=== PATIENT | female | born 1975 | race American Indian/Alaskan Native ===

== ENCOUNTER 2019-01-26 14:42 | Inpatient (IN) | payer SELFPAY ==
--- NOTE | 2019-01-26 14:53 | Event Note ---
ED Screening Note Date of service: 01/26/19 Time: 14:48 ED Screening Note: 43 y o f presents with low pelvic, abdominal and bilateral back pain x 3 days positive vomitting denies vag d/c/ bleed lmp:past hysterectomy hightly uncomfortable tender This initial assessment/diagnostic orders/clinical plan/treatment(s) is/are subject to change based on patients health status, clinical progression and re- assessment by fellow clinical providers in the ED. Further treatment and workup at subsequent clinical providers discretion. Patient/guardian urged not to elope from the ED as their condition may be serious if not clinically assessed and managed. Initial orders include: labs acc eval
[2019-01-26 15:29] LABS: Basophils % (Auto) 0.2 % (0.0-1.8); Eosinophils % (Auto) 0.2 % (0.0-4.3); Hemoglobin 14.7 gm/dl (10.1-14.3); Lymphocytes # (Auto) 0.8 K/mm3 (1.2-5.4); Lymphocytes % (Auto) 4.3 % (13.4-35.0); Mean Corpuscular HGB Conc 34 % (30-34); Mean Corpuscular Volume 88 fl (79-97); Monocytes # (Auto) 1.4 K/mm3 (0.0-0.8); Monocytes % (Auto) 7.7 % (0.0-7.3); Platelet Count 174 K/mm3 (140-440); Red Cell Distribution Width 14.3 % (13.2-15.2)
[2019-01-26] MEDS ORDERED: MORPHINE 4 MG/1 ML INJ IV ONE (15:34)
[2019-01-26] MEDS ORDERED: ONDANSETRON 4 MG/2 ML INJ IV ONE (15:34)
[2019-01-26] MEDS ORDERED: KETOROLAC 30 MG/1 ML INJ IV ONE (15:34)
[2019-01-26] MEDS ORDERED: SODIUM CHLORIDE 0.9% 1000 ML 1,000 ML IV ONE ×3 (15:34→17:17)
[2019-01-26] MEDS ORDERED: cefTRIAXone/NS 2 GM/100 ML 2 GM/100 ML BAG IV ONE (15:35)
--- NOTE | 2019-01-26 15:40 | Emergency Department Report ---
ED Abdominal Pain HPI - General Chief Complaint: Abdominal Pain Stated Complaint: LOWER BACK/ABD PAIN Time Seen by Provider: 01/26/19 14:47 Source: patient Mode of arrival: Ambulatory Limitations: No Limitations - History of Present Illness Initial Comments: Mrs. Wyman is a very pleasant 43-year-old female with history of uterine fibroids status post hysterectomy who presents with lower abdominal pain and bilateral back pain for last 3 days. She has nausea vomiting urinary frequency and urgency. Moderately severe aching back pain. Gradual onset. Positive generalized malaise. Majority of the pain localizes to the flank region bilaterally Past surgical history includes hysterectomy, MD Complaint: abdominal pain, flank pain -: Gradual, days(s) (3) Location: suprapubic, L flank, R flank, bilateral flank Radiation: suprapubic, L flank, R flank, bilateral flank Severity: severe Severity scale (0 -10): 8 Quality: aching Consistency: constant Improves With: nothing Worsens With: nothing Associated Symptoms: nausea, diarrhea - Related Data Allergies Allergy/AdvReac Type Severity Reaction Status Date / Time meperidine [From Demerol] Allergy Unknown Verified 01/26/19 14:45 ED Review of Systems ROS: Stated complaint: LOWER BACK/ABD PAIN Other details as noted in HPI Comment: All other systems reviewed and negative Constitutional: fever, malaise Gastrointestinal: abdominal pain, nausea, vomiting Genitourinary: urgency, frequency Musculoskeletal: back pain ED Past Medical Hx - Past Medical History Previous Medical History?: No - Surgical History Past Surgical History?: Yes Additional Surgical History: hysterectomy - Social History Smoking Status: Current Every Day Smoker Substance Use Type: Alcohol ED Physical Exam - General Limitations: No Limitations General appearance: alert, in no apparent distress, other (pleasant, nontoxic-appearing appears uncomfortable) - Head Head exam: Present: atraumatic, normocephalic - Eye Eye exam: Present: normal appearance - ENT ENT exam: Present: mucous membranes moist - Neck Neck exam: Present: normal inspection - Respiratory Respiratory exam: Present: normal lung sounds bilaterally, wheezes, rales, r honchi. Absent: respiratory distress - Cardiovascular Cardiovascular Exam: Present: normal rhythm, tachycardia, normal heart sounds. Absent: systolic murmur, diastolic murmur, rubs, gallop - GI/Abdominal GI/Abdominal exam: Present: soft, normal bowel sounds. Absent: distended, tenderness, guarding, rebound - Extremities Exam Extremities exam: Present: normal inspection - Back Exam Back exam: Present: CVA tenderness (R), CVA tenderness (L) - Neurological Exam Neurological exam: Present: alert, oriented X3 - Psychiatric Psychiatric exam: Present: normal affect, normal mood - Skin Skin exam: Present: warm, dry, intact, normal color. Absent: rash ED Course Vital Signs 01/26/19 01/26/19 01/26/19 14:58 16:09 16:10 Temperature 100.2 F H Pulse Rate 127 H Respiratory 20 20 20 Rate Blood Pressure 100/64 Blood Pressure [Left] O2 Sat by Pulse 98 Oximetry 01/26/19 01/26/19 17:18 17:19 Temperature Pulse Rate 91 H Respiratory 17 17 Rate Blood Pressure Blood Pressure 87/55 [Left] O2 Sat by Pulse 98 Oximetry ED Medical Decision Making - Lab Data Result diagrams: 01/26/19 14:56 01/26/19 14:56 - Radiology Data Radiology results: report reviewed - Medical Decision Making dx: acute pyelonephritis, IV ceftriaxone provided in ED, IVF provided in ED, lactic acid normal, admitted to hospitalist service for severe malaise CT a/p revealed 4 mm right distal ureteral stone without obstruction, No indication of pyonephrosis without hydronephrosis, hydroureter, or perinephric stranding I highly appreciate the assistance of my hospitalist colleague Dr. Diaz who evaluated patient in ED and accept Mrs. Wyman to the hospitalist service - Differential Diagnosis pyelonephritis, renal colic due to kidney stone appendicitis, cholecystitis Critical care attestation.: If time is entered above; I have spent that time in minutes in the direct care of this critically ill patient, excluding procedure time. ED Disposition Clinical Impression: Acute pyelonephritis, Kidney stone on right side Disposition: OP ADMIT IP TO THIS HOSP Is pt being admited?: Yes Does the pt Need Aspirin: No Condition: Stable
[2019-01-26 15:46] LABS: HCG Qualitative,Urine Negative (Negative)
[2019-01-26 15:50] LABS: Bacteria,Urine 4+ /HPF (Negative); Bilirubin,Urine NEG (Negative); Blood,Urine LG (Negative); Color,Urine Amber (Yellow); Mucus,Urine FEW /HPF; RBC,Urine > 182.0 /HPF (0.0-6.0); WBC,Urine > 182.0 /HPF (0.0-6.0)
[2019-01-26 16:01] LABS: Alanine Aminotransferase 14 units/L (7-56); Albumin 3.7 g/dL (3.9-5); BUN/Creatinine Ratio 13; Blood Urea Nitrogen 10 mg/dL (7-17); Hemolysis Index 2
[2019-01-26] MEDS ORDERED: oxyCODONE /ACETAMINOPHEN 5-325MG TAB PO ONE (16:30)
--- NOTE | 2019-01-26 17:01 | Cat Scan Report ---
CT ABDOMEN AND PELVIS WITHOUT CONTRAST INDICATION / CLINICAL INFORMATION: fever bilateral flank pain. TECHNIQUE: Axial CT images were obtained through the abdomen and pelvis without IV contrast. All CT scans at [facility] location are performed using CT dose reduction for ALARA by means of automated exposure control. COMPARISON: None available. FINDINGS: LOWER CHEST: Symmetric bibasilar platelike atelectatic changes. LIVER: No significant abnormality. GALLBLADDER: Hyperattenuating material layering dependently in the gallbladder likely represents bili curt sludge. BILE DUCTS: No significant abnormality. PANCREAS: No significant abnormality. SPLEEN: No significant abnormality. ADRENALS: No significant abnormality. RIGHT KIDNEY and URETER: Punctate calcifications are noted which may represent tiny calculi in the co llecting system of the kidney, not causing obstructive physiology (series 2 images 67 and 69). No abn ormal perinephric stranding. There is a subtle hypoattenuating lesion centrally in the kidney that me asures 1.2 cm and likely represents a cyst or possibly a calyceal diverticulum but is incompletely ch aracterized on this exam. (Series 2 image 61). A 4 mm calcified body on series 2 image 121 appears to be within the ureter, which is minimally dilated above the calculus and collapsed below it. No signi ficant periureteral stranding. LEFT KIDNEY and URETER: No definite renal or ureteral calculus. No hydronephrosis or perinephric stra nding. Simple cyst or calyceal diverticulum with diameter 2 cm is noted in the interpolar region. STOMACH and SMALL BOWEL: No significant abnormality. COLON: No significant abnormality. PERITONEUM: No free fluid. No free air. No fluid collection. LYMPH NODES: No adenopathy. AORTA and ARTERIES: Unremarkable by noncontrast technique. IVC and VEINS: Unremarkable by noncontrast technique. URINARY BLADDER: Underdistended, limiting evaluation. No abnormal thickening of the wall. No bladder calculus is identified. REPRODUCTIVE ORGANS: No significant abnormality. ADDITIONAL FINDINGS: None. SKELETAL SYSTEM: No acute abnormality. A transitional lumbosacral vertebra is noted. IMPRESSION: 4 mm distal right ureteral calculus with minimal proximal ureterectasis. There are additional punctate nonobstructing calculi in the collecting system of the right kidney. Biliary sludge. No evidence of acute cholecystitis by noncontrast CT. Signer Name: Manolo Phelan MD Signed: 01/26/2019 4:56 PM Workstation Name: [id number]
[2019-01-26] MEDS ORDERED: TAMSULOSIN 0.4 MG CAP PO ONE (18:01)
[2019-01-26] MEDS ORDERED: ONDANSETRON 4 MG/2 ML INJ IV PRN (18:11)
--- NOTE | 2019-01-26 18:28 | History and Physical Report ---
History of Present Illness Date of examination: 01/26/19 Date of admission: 01/26/2019 Chief complaint: Bilateral flank pain since yesterday Nausea vomiting since yesterday History of present illness: 43-y/o female with history of uterine fibroids status post hysterectomy presents with lower abdominal pain and bilateral back pain for last 3 days. Also fever and chills present. Patient has nausea vomiting urinary frequency and urgency. Patient vomited about 3-4 times over the last 12 hours. Moderately severe aching back pain. Gradual onset. Pain is about 6 on a scale of 1-10 . No exacerbating or relieving factors. Past Medical History None Surgical History Past Surgical History?: Yes C-sections x2 Hysterectomy , Social History Smoking Status: Current Every Day Smoker Substance Use Type: Alcohol occasionally Family History Htn Review of Systems ROS: Stated complaint: LOWER BACK/ABD PAIN Other details as noted in HPI Comment: All other systems reviewed and negative Constitutional: fever, malaise Gastrointestinal: abdominal pain, nausea, vomiting Genitourinary: urgency, frequency Musculoskeletal: back pain 14 point review of systems otherwise negative Medications and Allergies Allergies Allergy/AdvReac Type Severity Reaction Status Date / Time meperidine [From Demerol] Allergy Unknown Verified 01/26/19 14:45 Active Meds: Active Medications Acetaminophen (Tylenol) 650 mg PO Q4H PRN PRN Reason: Pain MILD(1-3)/Fever >100.5/LIZARRAGA Famotidine (Pepcid) 20 mg PO BID JAIRO Hydromorphone HCl (Dilaudid) 0.5 mg IV Q3H PRN PRN Reason: Pain , Severe (7-10) Sodium Chloride (Nacl 0.9% 1000 Ml) 1,000 mls @ 100 mls/hr IV DIRECT JAIRO Ceftriaxone Sodium (Rocephin/Ns 2 Gm/100 Ml) 2 gm in 100 mls @ 200 mls/hr IV Q24HR JAIRO; Protocol Ibuprofen (Ibuprofen) 600 mg PO Q6H PRN PRN Reason: Pain, Mild (1-3) Ondansetron HCl (Zofran) 4 mg IV Q8H PRN PRN Reason: Nausea And Vomiting Sodium Chloride (Sodium Chloride Flush Syringe 10 Ml) 10 ml IV BID [facility] Sodium Chloride (Sodium Chloride Flush Syringe 10 Ml) 10 ml IV PRN PRN PRN Reason: LINE FLUSH Exam - Constitutional Vitals: Temp Pulse Resp BP Pulse Ox 100.2 F H 91 H 17 87/55 98 01/26/19 14:58 01/26/19 17:18 01/26/19 17:19 01/26/19 17:18 01/26/19 17:18 General appearance: Present: no acute distress, well-nourished - EENT Eyes: Present: PERRL ENT: hearing intact, clear oral mucosa - Neck Neck: Present: supple, normal ROM - Respiratory Respiratory effort: normal Respiratory: bilateral: CTA - Cardiovascular Heart rate: 88 Rhythm: regular Heart Sounds: Present: S1 & S2. Absent: rub, click - Extremities Extremities: no ischemia, pulses intact, pulses symmetrical, No edema Peripheral Pulses: within normal limits - Abdominal General gastrointestinal: Present: soft, tender, non-distended, normal bowel sounds Localized gastrointestinal: tender: diffuse Female genitourinary: Present: normal - Rectal Rectal Exam: deferred - Integumentary Integumentary: Present: clear, warm, dry - Musculoskeletal Musculoskeletal: gait normal, strength equal bilaterally - Psychiatric Psychiatric: appropriate mood/affect, intact judgment & insight - Neurologic Neurologic: CNII-XII intact, moves all extremities - Allied Health Allied health notes reviewed: nursing, case management Results - Labs CBC & Chem 7: 01/26/19 14:56 01/26/19 14:56 Labs: Laboratory Last Values WBC 18.5 K/mm3 (4.5-11.0) H 01/26/19 14:56 RBC 4.90 M/mm3 (3.65-5.03) 01/26/19 14:56 Hgb 14.7 gm/dl (10.1-14.3) H 01/26/19 14:56 Hct 43.0 % (30.3-42.9) H 01/26/19 14:56 MCV 88 fl (79-97) 01/26/19 14:56 MCH 30 pg (28-32) 01/26/19 14:56 MCHC 34 % (30-34) 01/26/19 14:56 RDW 14.3 % (13.2-15.2) 01/26/19 14:56 Plt Count 174 K/mm3 (140-440) 01/26/19 14:56 Lymph % (Auto) 4.3 % (13.4-35.0) L 01/26/19 14:56 [place] % (Auto) 7.7 % (0.0-7.3) H 01/26/19 14:56 Eos % (Auto) 0.2 % (0.0-4.3) 01/26/19 14:56 Baso % (Auto) 0.2 % (0.0-1.8) 01/26/19 14:56 Lymph # 0.8 K/mm3 (1.2-5.4) L 01/26/19 14:56 [place] # 1.4 K/mm3 (0.0-0.8) H 01/26/19 14:56 Eos # 0.0 K/mm3 (0.0-0.4) 01/26/19 14:56 Baso # 0.0 K/mm3 (0.0-0.1) 01/26/19 14:56 Seg Neutrophils % 87.6 % (40.0-70.0) H 01/26/19 14:56 Seg Neutrophils # 16.2 K/mm3 (1.8-7.7) H 01/26/19 14:56 Sodium 132 mmol/L (137-145) L 01/26/19 14:56 Potassium 3.2 mmol/L (3.6-5.0) L 01/26/19 14:56 Chloride 97.6 mmol/L (98-107) L 01/26/19 14:56 Carbon Dioxide 22 mmol/L (22-30) 01/26/19 14:56 Anion Gap 16 mmol/L 01/26/19 14:56 BUN 10 mg/dL (7-17) 01/26/19 14:56 Creatinine 0.8 mg/dL (0.7-1.2) 01/26/19 14:56 Estimated GFR > 60 ml/min 01/26/19 14:56 BUN/Creatinine Ratio 13 % 01/26/19 14:56 Glucose 111 mg/dL (65-100) H 01/26/19 14:56 Lactic Acid 0.90 mmol/L (0.7-2.0) 01/26/19 16:45 Calcium 9.0 mg/dL (8.4-10.2) 01/26/19 14:56 Total Bilirubin 0.40 mg/dL (0.1-1.2) 01/26/19 14:56 AST 14 units/L (5-40) 01/26/19 14:56 ALT 14 units/L (7-56) 01/26/19 14:56 Alkaline Phosphatase 102 units/L (35-129) 01/26/19 14:56 Total Protein 7.7 g/dL (6.3-8.2) 01/26/19 14:56 Albumin 3.7 g/dL (3.9-5) L 01/26/19 14:56 Albumin/Globulin Ratio 0.9 % 01/26/19 14:56 Lipase 12 units/L (13-60) L 01/26/19 14:56 Urine Color Gunjan (Yellow) 01/26/19 15:30 Urine Turbidity Cloudy (Clear) 01/26/19 15:30 Urine pH 6.0 (5.0-7.0) 01/26/19 15:30 Ur Specific [place] 1.013 (1.003-1.030) 01/26/19 15:30 Urine Protein 100 mg/dl mg/dL (Negative) 01/26/19 15:30 Urine Glucose (UA) Neg mg/dL (Negative) 01/26/19 15:30 Urine Ketones Tr mg/dL (Negative) 01/26/19 15:30 Urine Blood Lg (Negative) 01/26/19 15:30 Urine Nitrite Neg (Negative) 01/26/19 15:30 Ur Reducing Substances Not Reportable 01/26/19 15:30 Urine Bilirubin Neg (Negative) 01/26/19 15:30 Urine Ictotest Not Reportable 01/26/19 15:30 Urine Urobilinogen 4.0 mg/dL (<2.0) 01/26/19 15:30 Ur Leukocyte Esterase Lg (Negative) 01/26/19 15:30 Urine WBC (Auto) > 182.0 /HPF (0.0-6.0) H 01/26/19 15:30 Urine RBC (Auto) > 182.0 /HPF (0.0-6.0) 01/26/19 15:30 U Epithel Cells (Auto) 2.0 /HPF (0-13.0) 01/26/19 15:30 Urine Bacteria (Auto) 4+ /HPF (Negative) 01/26/19 15:30 Urine WBC Clumps 2+ /HPF 01/26/19 15:30 Urine Mucus Few /HPF 01/26/19 15:30 Urine HCG, Qual Negative (Negative) 01/26/19 15:30 Short CBC 01/26/19 Range/Units 14:56 WBC 18.5 H (4.5-11.0) K/mm3 Hgb 14.7 H (10.1-14.3) gm/dl Hct 43.0 H (30.3-42.9) % Plt Count 174 (140-440) K/mm3 BMP 01/26/19 14:56 Sodium 132 L Potassium 3.2 L Chloride 97.6 L Carbon Dioxide 22 BUN 10 Creatinine 0.8 Glucose 111 H Calcium 9.0 Liver Function 01/26/19 Range/Units 14:56 Total Bilirubin 0.40 (0.1-1.2) mg/dL AST 14 (5-40) units/L ALT 14 (7-56) units/L Alkaline Phosphatase 102 (35-129) units/L Albumin 3.7 L (3.9-5) g/dL Urine 01/26/19 Range/Units 15:30 Urine Color Gunjan (Yellow) Urine pH 6.0 (5.0-7.0) Ur Specific [place] 1.013 (1.003-1.030) Urine Protein 100 mg/dl (Negative) mg/dL Urine Glucose (UA) Neg (Negative) mg/dL - Imaging and Cardiology CT scan - abdomen: report reviewed Imaging and Cardiology: CT abdomen and pelvis RIGHT KIDNEY and URETER: Punctate calcifications are noted which may represent tiny calculi in the collecting system of the kidney, not causing obstructive physiology (series 2 images 67 and 69). No abnormal perinephric stranding. There is a subtle hypoattenuating lesion centrally in the kidney that measures 1.2 cm and likely represents a cyst or possibly a calyceal diverticulum but is incompletely characterized on this exam. (Series 2 image 61). A 4 mm calcified body on series 2 image 121 appears to be within the ureter, which is minimally dilated above the calculus and collapsed below it. No significant periureteral stranding. LEFT KIDNEY and URETER: No definite renal or ureteral calculus. No hydronephr osis or perinephric stranding. Simple cyst or calyceal diverticulum with diameter 2 cm is noted in t he interpolar region. STOMACH and SMALL BOWEL: No significant abnormality. COLON: No significant abnormality. PERITONEUM: No free fluid. No free air. No fluid collection. LYMPH NODES: No adenopathy. AORTA and ARTERIES: Unremarkable by noncontrast technique. IVC and VEINS: Unremarkable by noncontrast technique. URINARY BLADDER: Underdistended, limiting evaluation. No abnormal thickening of the wall. No bladder calculus is identified. REPRODUCTIVE ORGANS: No significant abnormality. ADDITIONAL FINDINGS: None. SKELETAL SYSTEM: No acute abnormality. A transitional lumbosacral vertebra is noted. IMPRESSION: 4 mm distal right ureteral calculus with minimal proximal ureterectasis. There are additional punctate nonobstructing calculi in the collecting system of the right kidney. Biliary sludge. No evidence of acute cholecystitis by noncontrast CT. Assessment and Plan Advance Directives: Yes (full code) VTE prophylaxis?: Chemical Plan of care discussed with patient/family: Yes - Patient Problems (1) SIRS (systemic inflammatory response syndrome) Current Visit: Yes Status: Acute Plan to address problem: Patient is a high white count and fever and urinary tract infection Patient has bilateral flank pain secondary to acute pyelonephritis IV antibiotics in the form of ceftriaxone pending urine cultures (2) Acute pyelonephritis Current Visit: Yes Status: Acute Plan to address problem: IV Rocephin 2 g IV piggyback every 24hrs Check urine cultures (3) Hypokalemia Current Visit: Yes Status: Acute Plan to address problem: Supplemented (4) Nicotine dependence Current Visit: Yes Status: Chronic Qualifiers: Nicotine product type: cigarettes Plan to address problem: Patient counseled NicoDerm patch initiated (5) DVT prophylaxis Current Visit: Yes Status: Acute Plan to address problem: On Lovenox and GI prophylaxis
[2019-01-26] MEDS ORDERED: POTASSIUM CHLORIDE ER 20 MEQ TAB PO ONE ×2 (19:07→20:31)
[2019-01-26] MEDS ORDERED: SODIUM CHLORIDE 0.9% 1000 ML 1,000 ML ONE (19:28)
[2019-01-26] MEDS: cefTRIAXone/NS 2 GM/100 ML 2 GM/100 ML BAG IV SCH (20:26)
[2019-01-26] MEDS ORDERED: ENOXAPARIN 40 MG/0.4 ML INJ SUB-Q SCH (22:00)
[2019-01-26] MEDS: SODIUM CHLORIDE 0.9% 1000 ML 1,000 ML IV SCH (22:23)
[2019-01-26] MEDS: HYDROmorphone 1 MG/1 ML INJ IV PRN (22:24)
[2019-01-26] MEDS: FAMOTIDINE 20 MG TAB PO SCH (22:24)
[2019-01-26] MEDS: ACETAMINOPHEN 325 MG TAB PO PRN (23:16)
[2019-01-26] MEDS: guaiFENesin ER 600 MG TAB PO SCH (23:16)
[2019-01-26] MEDS: NICOTINE 7 MG/24 HR PATCH TD SCH (23:18)
[2019-01-27] MEDS: IBUPROFEN 600 MG TAB PO PRN ×4 (00:59→23:33)
[2019-01-27 05:56] LABS: Basophils % (Auto) 0.1 % (0.0-1.8); Eosinophils # (Auto) 0.1 K/mm3 (0.0-0.4); Eosinophils % (Auto) 0.6 % (0.0-4.3); Hematocrit 33.5 % (30.3-42.9); Hemoglobin 11.4 gm/dl (10.1-14.3); Lymphocytes # (Auto) 1.3 K/mm3 (1.2-5.4); Lymphocytes % (Auto) 12.4 % (13.4-35.0); Mean Corpuscular HGB Conc 34 % (30-34); Mean Corpuscular Volume 90 fl (79-97); Monocytes # (Auto) 1.2 K/mm3 (0.0-0.8); Platelet Count 116 K/mm3 (140-440); Red Blood Count 3.74 M/mm3 (3.65-5.03); Red Cell Distribution Width 14.4 % (13.2-15.2)
[2019-01-27 06:38] LABS: Alanine Aminotransferase 10 units/L (7-56); Albumin 2.7 g/dL (3.9-5); BUN/Creatinine Ratio 15; Blood Urea Nitrogen 9 mg/dL (7-17); Calcium 7.5 mg/dL (8.4-10.2); Hemolysis Index 8
[2019-01-27] MEDS: cefTRIAXone/NS 2 GM/100 ML 2 GM/100 ML BAG IV SCH (10:00)
[2019-01-27] MEDS: NICOTINE 7 MG/24 HR PATCH TD SCH (10:01)
[2019-01-27] MEDS: guaiFENesin ER 600 MG TAB PO SCH ×2 (10:01→21:26)
[2019-01-27] MEDS: FAMOTIDINE 20 MG TAB PO SCH ×2 (10:01→21:26)
[2019-01-27] MEDS: HYDROmorphone 1 MG/1 ML INJ IV PRN ×2 (13:31→18:58)
--- NOTE | 2019-01-27 16:35 | Progress Note ---
Assessment and Plan Assessment and plan: Patient is a 43-y/o female with history of uterine fibroids status post hysterectomy presents with lower abdominal pain and bilateral back pain for last 3 days. Also fever and chills present. Patient has nausea vomiting urinary frequency and urgency. Patient vomited about 3-4 times over the last 12 hours. Moderately severe aching back pain. Gradual onset. Pain is about 6 on a scale of 1-10 . No exacerbating or relieving factors. * CT abd/pelvis wo contrast IMPRESSION: 4 mm distal right ureteral calculus with minimal proximal ureterectasis. There are additional punctate nonobstructing calculi in the collecting system of the right kidney. Biliary sludge. No evidence of acute cholecystitis by noncontrast CT. Sepsis secondary to acute pyelonephritis: IV antibiotics in the form of ceftriax one pending urine cultures Acute pyelonephritis: IV Rocephin 2 g IV piggyback every 24hrs, Check urine cultures Hypokalemia Supplemented, monitor BMP closely Nicotine dependence: Patient counseled, NicoDerm patch initiated Right Ureteral stones: consulted Urology DVT prophylaxis: On Lovenox and GI prophylaxis History Interval history: Patient was seen and examined. Follow-up on current diagnosis of fevers. No overnight events reported to me. Patient denies any chest pain, shortness breath, nausea/vomiting or severe headaches. Imaging, nursing note, chart, labs and old chart reviewed. Discussed with patient. Hospitalist Physical - Physical exam Narrative exam: Gen: WDWN, ill appearing, diaphoretic, NAD, Awake, Alert, Orientated HEENT: NCAT, EOMI, PERRL, OP Clear Neck: supple, no adenopathy, no thyromegaly, no JVD CVS/Heart: RRR, normal S1S2, pulses present bilaterally Chest/Lungs: CTA B, Symmetrical chest expansion, good air entry bilaterally GI/Abdomen: soft, NTND, good bowel sounds, no guarding or rebound /Bladder: no suprapubic tenderness, +Right CVA tenderness no paraspinal tenderness Extermity/Skin: no c/c/e, no obvious rash MSK: FROM x 4 Neuro: CN 2-12 grossly intact, no new focal deficits Psych: calm - Constitutional Vitals: Temp Pulse Resp BP Pulse Ox 98.3 F 78 18 85/50 100 01/27/19 06:20 01/27/19 06:20 01/27/19 06:20 01/27/19 06:20 01/27/19 10:00 General appearance: Present: no acute distress, well-nourished Results - Labs CBC & Chem 7: 01/27/19 05:38 01/27/19 05:38 Labs: Laboratory Last Values WBC 10.8 K/mm3 (4.5-11.0) 01/27/19 05:38 RBC 3.74 M/mm3 (3.65-5.03) 01/27/19 05:38 Hgb 11.4 gm/dl (10.1-14.3) D 01/27/19 05:38 Hct 33.5 % (30.3-42.9) D 01/27/19 05:38 MCV 90 fl (79-97) 01/27/19 05:38 MCH 31 pg (28-32) 01/27/19 05:38 MCHC 34 % (30-34) 01/27/19 05:38 RDW 14.4 % (13.2-15.2) 01/27/19 05:38 Plt Count 116 K/mm3 (140-440) L 01/27/19 05:38 Lymph % (Auto) 12.4 % (13.4-35.0) L 01/27/19 05:38 [place] % (Auto) 11.0 % (0.0-7.3) H 01/27/19 05:38 Eos % (Auto) 0.6 % (0.0-4.3) 01/27/19 05:38 Baso % (Auto) 0.1 % (0.0-1.8) 01/27/19 05:38 Lymph # 1.3 K/mm3 (1.2-5.4) 01/27/19 05:38 [place] # 1.2 K/mm3 (0.0-0.8) H 01/27/19 05:38 Eos # 0.1 K/mm3 (0.0-0.4) 01/27/19 05:38 Baso # 0.0 K/mm3 (0.0-0.1) 01/27/19 05:38 Seg Neutrophils % 75.9 % (40.0-70.0) H 01/27/19 05:38 Seg Neutrophils # 8.2 K/mm3 (1.8-7.7) H 01/27/19 05:38 Sodium 137 mmol/L (137-145) 01/27/19 05:38 Potassium 3.4 mmol/L (3.6-5.0) L 01/27/19 05:38 Chloride 107.6 mmol/L (98-107) H 01/27/19 05:38 Carbon Dioxide 19 mmol/L (22-30) L 01/27/19 05:38 Anion Gap 14 mmol/L 01/27/19 05:38 BUN 9 mg/dL (7-17) 01/27/19 05:38 Creatinine 0.6 mg/dL (0.7-1.2) L 01/27/19 05:38 Estimated GFR > 60 ml/min 01/27/19 05:38 BUN/Creatinine Ratio 15 % 01/27/19 05:38 Glucose 98 mg/dL (65-100) 01/27/19 05:38 Hemoglobin A1c 5.2 % (4-6) 01/26/19 14:56 Lactic Acid 0.90 mmol/L (0.7-2.0) 01/26/19 16:45 Calcium 7.5 mg/dL (8.4-10.2) L D 01/27/19 05:38 Total Bilirubin 0.40 mg/dL (0.1-1.2) 01/27/19 05:38 AST 12 units/L (5-40) 01/27/19 05:38 ALT 10 units/L (7-56) 01/27/19 05:38 Alkaline Phosphatase 72 units/L (35-129) 01/27/19 05:38 Total Protein 5.8 g/dL (6.3-8.2) L D 01/27/19 05:38 Albumin 2.7 g/dL (3.9-5) L 01/27/19 05:38 Albumin/Globulin Ratio 0.9 % 01/27/19 05:38 Lipase 12 units/L (13-60) L 01/26/19 14:56 Urine Color [place] (Yellow) 01/26/19 15:30 Urine Turbidity Cloudy (Clear) 01/26/19 15:30 Urine pH 6.0 (5.0-7.0) 01/26/19 15:30 Ur Specific [place] 1.013 (1.003-1.030) 01/26/19 15:30 Urine Protein 100 mg/dl mg/dL (Negative) 01/26/19 15:30 Urine Glucose (UA) Neg mg/dL (Negative) 01/26/19 15:30 Urine Ketones Tr mg/dL (Negative) 01/26/19 15:30 Urine Blood Lg (Negative) 01/26/19 15:30 Urine Nitrite Neg (Negative) 01/26/19 15:30 Ur Reducing Substances Not Reportable 01/26/19 15:30 Urine Bilirubin Neg (Negative) 01/26/19 15:30 Urine Ictotest Not Reportable 01/26/19 15:30 Urine Urobilinogen 4.0 mg/dL (<2.0) 01/26/19 15:30 Ur Leukocyte Esterase Lg (Negative) 01/26/19 15:30 Urine WBC (Auto) > 182.0 /HPF (0.0-6.0) H 01/26/19 15:30 Urine RBC (Auto) > 182.0 /HPF (0.0-6.0) 01/26/19 15:30 U Epithel Cells (Auto) 2.0 /HPF (0-13.0) 01/26/19 15:30 Urine Bacteria (Auto) 4+ /HPF (Negative) 01/26/19 15:30 Urine WBC Clumps 2+ /HPF 01/26/19 15:30 Urine Mucus Few /HPF 01/26/19 15:30 Urine HCG, Qual Negative (Negative) 01/26/19 15:30 Active Medications - Current Medications Current Medications: Generic Name Dose Route Start Last Admin Trade Name Freq PRN Reason Stop Dose Admin Acetaminophen 650 mg 01/26/19 18:11 01/26/19 23:16 Tylenol PO 650 mg Q4H PRN Administration Pain MILD(1-3)/Fever >100.5/LIZARRAGA Famotidine 20 mg 01/26/19 22:00 01/27/19 10:01 Pepcid PO 20 mg BID JAIRO Administration Guaifenesin 600 mg 01/26/19 23:45 01/27/19 10:01 Mucinex Er PO 600 mg BID JAIRO Administration Hydromorphone HCl 0.5 mg 01/26/19 18:11 01/27/19 13:31 Dilaudid IV 0.5 mg Q3H PRN Administration Pain , Severe (7-10) Sodium Chloride 1,000 mls @ 100 mls/hr 01/26/19 19:00 01/26/19 22:23 Nacl 0.9% 1000 Ml IV 100 mls/hr DIRECT JAIRO Administration Ceftriaxone Sodium 2 gm in 100 mls @ 200 mls/hr 01/26/19 19:00 01/27/19 10:00 Rocephin/Ns 2 Gm/100 Ml IV 200 mls/hr Q24HR JAIRO Administration Protocol Ibuprofen 600 mg 01/26/19 18:11 01/27/19 13:31 Ibuprofen PO 600 mg Q6H PRN Administration Pain, Mild (1-3) Nicotine 7 mg 01/26/19 20:00 01/27/19 10:01 Habitrol TD 7 mg QDAY JAIRO Administration Ondansetron HCl 4 mg 01/26/19 18:11 Zofran IV Q8H PRN Nausea And Vomiting Sodium Chloride 10 ml 01/26/19 22:00 01/27/19 10:02 Sodium Chloride Flush Syringe 10 Ml IV 10 ml BID JAIRO Administration Sodium Chloride 10 ml 01/26/19 18:11 Sodium Chloride Flush Syringe 10 Ml IV PRN PRN LINE FLUSH Nutrition/Malnutrition Assess - Dietary Evaluation Nutrition/Malnutrition Findings: Nutrition Notes Start: 01/27/19 10:03 Freq: Status: Active Protocol: Document 01/27/19 10:25 LM (Rec: 01/27/19 10:54 LM [id number]) Nutrition Notes Need for Assessment generated from: MD Order Initial or Follow up Assessment Other Pertinent Diagnosis Acute pyelonephritis; Nephroliathisis Current Diet Regular Labs/Tests K 3.4 Cl 107.6 Creatinine 0.6 Ca 7.5 Total PRO 5.8 Albumin 2.7 Pertinent Medications Reviewed Height 5 ft 3 in Weight 72.6 kg [place] Body Weight (kg) 52.27 BMI 28.3 Intake Prior to Admission Excellent Weight Status Overweight Subjective/Other Information Pt was alert and in a friendly mood. Pt stated she was " riding this out" was "ready to get better" and "has never dealt with anything like this before". Pt ate breakfast (50 % upon observation of tray) which was the first time pt had eaten in four days. Pt stated the food was "decent" because she was so hungry. 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 Pt stated she has lost 2-4lbs since becoming ill. Percent of energy/protein needs met: 60% kcal needs 70% PRO needs Burn Absent Trauma Absent Current % PO Fair (50-74%) Minimum of two criteria No #1 Nutrition Diagnosis Inadequate oral intake Etiology Acute illness As Evidenced by Signs and Symptoms Pt states no food consumption in four days, lack of appetite . Is patient on ventilator? No Is Patient Ambulatory and/or Out of Bed Yes REE-(Rusk-St. Jeor-ambulatory/OOB) [ 1768.169 [id number]] Calculation Used for Recommendations Rusk-St Jeor Additional Notes PRO needs: 58-72g/day (0.8-1g/ kg) Fluid: 1ml/kcal Nutrition Intervention Change Diet Order: Regular RD phone number provided Yes Goal #1 Meet 80% of kcal/PRO needs. Anticipated Discharge Needs: Regular Follow-Up By: 01/29/19 Additional Comments F/U for PO intakes.
--- NOTE | 2019-01-27 17:56 | Consultation ---
History of Present Illness - Reason for Consult Consult date: 01/27/19 - History of Present Illness NEW TO OUR SERVICE CC: 4MM RT DISTAL STONE 43-y/o female with history of uterine fibroids status post hysterectomy presents with lower abdominal pain and bilateral back pain for last 3 days. Also fever and chills present. Patient has nausea vomiting urinary frequency and urgency. Patient vomited about 3-4 times over the last 12 hours. Moderately severe aching back pain. Gradual onset. Pain is about 6 on a scale of 1-10 . No exacerbating or relieving factors. NO HX FEELS BETTER. + BILAT FLANK PAIN ABD SOFT A/P CONTINUE ABX OBS NPO AFTER MN MAY NEED CYSTO OR NEPHROSTOMY IF NOT BETTER Medications and Allergies Allergies Allergy/AdvReac Type Severity Reaction Status Date / Time meperidine [From Demerol] Allergy Unknown Verified 01/26/19 14:45 Active Meds: Active Medications Acetaminophen (Tylenol) 650 mg PO Q4H PRN PRN Reason: Pain MILD(1-3)/Fever >100.5/LIZARRAGA Last Admin: 01/26/19 23:16 Dose: 650 mg Documented by: Famotidine (Pepcid) 20 mg PO BID [facility] Last Admin: 01/27/19 10:01 Dose: 20 mg Documented by: Guaifenesin (Mucinex Er) 600 mg PO BID [facility] Last Admin: 01/27/19 10:01 Dose: 600 mg Documented by: Hydromorphone HCl (Dilaudid) 0.5 mg IV Q3H PRN PRN Reason: Pain , Severe (7-10) Last Admin: 01/27/19 13:31 Dose: 0.5 mg Documented by: Sodium Chloride (Nacl 0.9% 1000 Ml) 1,000 mls @ 100 mls/hr IV DIRECT [facility] Last Admin: 01/26/19 22:23 Dose: 100 mls/hr Documented by: Ceftriaxone Sodium (Rocephin/Ns 2 Gm/100 Ml) 2 gm in 100 mls @ 200 mls/hr IV Q24HR [facility]; Protocol Last Admin: 01/27/19 10:00 Dose: 200 mls/hr Documented by: Ibuprofen (Ibuprofen) 600 mg PO Q6H PRN PRN Reason: Pain, Mild (1-3) Last Admin: 01/27/19 13:31 Dose: 600 mg Documented by: Nicotine (Habitrol) 7 mg TD QDAY [facility] Last Admin: 01/27/19 10:01 Dose: 7 mg Documented by: Ondansetron HCl (Zofran) 4 mg IV Q8H PRN PRN Reason: Nausea And Vomiting Sodium Chloride (Sodium Chloride Flush Syringe 10 Ml) 10 ml IV BID [facility] Last Admin: 01/27/19 10:02 Dose: 10 ml Documented by: Sodium Chloride (Sodium Chloride Flush Syringe 10 Ml) 10 ml IV PRN PRN PRN Reason: LINE FLUSH Exam - Constitutional Vitals: Temp Pulse Resp BP Pulse Ox 98.3 F 78 18 85/50 100 01/27/19 06:20 01/27/19 06:20 01/27/19 06:20 01/27/19 06:20 01/27/19 10:00 Results - Labs CBC & Chem 7: 01/27/19 05:38 01/27/19 05:38 Labs: Abnormal lab results 01/27/19 01/27/19 Range/Units 05:38 05:38 Plt Count 116 L (140-440) K/mm3 Lymph % (Auto) 12.4 L (13.4-35.0) % [place] % (Auto) 11.0 H (0.0-7.3) % [place] # 1.2 H (0.0-0.8) K/mm3 Seg Neutrophils % 75.9 H (40.0-70.0) % Seg Neutrophils # 8.2 H (1.8-7.7) K/mm3 Potassium 3.4 L (3.6-5.0) mmol/L Chloride 107.6 H (98-107) mmol/L Carbon Dioxide 19 L (22-30) mmol/L Creatinine 0.6 L (0.7-1.2) mg/dL Calcium 7.5 L D (8.4-10.2) mg/dL Total Protein 5.8 L D (6.3-8.2) g/dL Albumin 2.7 L (3.9-5) g/dL
[2019-01-27] MEDS: SODIUM CHLORIDE 0.9% 1000 ML 1,000 ML IV SCH (21:26)
[2019-01-28] MEDS: ACETAMINOPHEN 325 MG TAB PO PRN (00:48)
[2019-01-28] MEDS: HYDROmorphone 1 MG/1 ML INJ IV PRN ×3 (01:55→12:57)
[2019-01-28] MEDS: SODIUM CHLORIDE 0.9% 1000 ML 1,000 ML IV SCH (06:37)
--- NOTE | 2019-01-28 10:17 | Progress Note ---
Assessment and Plan stil with pain ureteral stone informed consent for cysto today Subjective Date of service: 01/28/19 Principal diagnosis: stone Objective - Constitutional Vitals: Vital Signs - 12hr 01/28/19 01/28/19 01/28/19 00:27 01:55 06:21 Temperature 100.3 F H 99.3 F 98.4 F Pulse Rate 110 H 66 Respiratory 20 16 Rate Blood Pressure 110/58 Blood Pressure 90/50 [Left] O2 Sat by Pulse 99 Oximetry 01/28/19 06:40 Temperature Pulse Rate Respiratory 18 Rate Blood Pressure 101/61 Blood Pressure [Left] O2 Sat by Pulse Oximetry General appearance: Present: mild distress - Neck Neck: supple - Respiratory Respiratory effort: normal - Labs CBC & Chem 7: 01/27/19 05:38 01/27/19 05:38 Medications & Allergies - Medications Allergies/Adverse Reactions: Allergies meperidine [From Demerol] Allergy (Verified 01/26/19 14:45) Unknown Active Medications: Generic Name Dose Route Start Last Admin Trade Name Freq PRN Reason Stop Dose Admin Acetaminophen 650 mg 01/26/19 18:11 01/28/19 00:48 Tylenol PO 650 mg Q4H PRN Administration Pain MILD(1-3)/Fever >100.5/LIZARRAGA Famotidine 20 mg 01/26/19 22:00 01/27/19 21:26 Pepcid PO 20 mg BID JAIRO Administration Guaifenesin 600 mg 01/26/19 23:45 01/27/19 21:26 Mucinex Er PO 600 mg BID JAIRO Administration Hydromorphone HCl 0.5 mg 01/26/19 18:11 01/28/19 08:29 Dilaudid IV 0.5 mg Q3H PRN Administration Pain , Severe (7-10) Sodium Chloride 1,000 mls @ 100 mls/hr 01/26/19 19:00 01/28/19 06:37 Nacl 0.9% 1000 Ml IV 100 mls/hr DIRECT JAIRO Administration Ceftriaxone Sodium 2 gm in 100 mls @ 200 mls/hr 01/26/19 19:00 01/27/19 10:00 Rocephin/Ns 2 Gm/100 Ml IV 200 mls/hr Q24HR JAIRO Administration Protocol Ibuprofen 600 mg 01/26/19 18:11 01/27/19 23:33 Ibuprofen PO 600 mg Q6H PRN Administration Pain, Mild (1-3) Nicotine 7 mg 01/26/19 20:00 01/27/19 10:01 Habitrol TD 7 mg QDAY JAIRO Administration Ondansetron HCl 4 mg 01/26/19 18:11 Zofran IV Q8H PRN Nausea And Vomiting Sodium Chloride 10 ml 01/26/19 22:00 01/27/19 21:27 Sodium Chloride Flush Syringe 10 Ml IV 10 ml BID JAIRO Administration Sodium Chloride 10 ml 01/26/19 18:11 01/28/19 01:56 Sodium Chloride Flush Syringe 10 Ml IV 10 ml PRN PRN Administration LINE FLUSH
[2019-01-28] MEDS: FAMOTIDINE 20 MG TAB PO SCH (12:26)
[2019-01-28] MEDS: guaiFENesin ER 600 MG TAB PO SCH (12:26)
[2019-01-28] MEDS: cefTRIAXone/NS 2 GM/100 ML 2 GM/100 ML BAG IV SCH (12:58)
[2019-01-28] MEDS: NICOTINE 7 MG/24 HR PATCH TD SCH (12:58)
[2019-01-28] MEDS ORDERED: ONDANSETRON 4 MG/2 ML INJ IV PRN (14:05)
[2019-01-28] MEDS ORDERED: fentaNYL 100 MCG/2 ML INJ IV PRN (14:05)
[2019-01-28] MEDS ORDERED: MORPHINE 2 MG/1 ML INJ IV ONE (14:05)
--- NOTE | 2019-01-28 14:06 | Anesthesia Day of Surgery ---
Anesthesia Day of Surgery - Day of Surgery Patient Examined: Yes Patient H&P Reviewed: Yes Patient is NPO: Yes
--- NOTE | 2019-01-28 14:07 | Anesthesia Consultation ---
Anesthesia Consult and Med Hx Date of service: 01/28/19 - Airway Anesthetic Teeth Evaluation: Good ROM Head & Neck: Adequate Mental/Hyoid Distance: Adequate Mallampati Class: Class II Intubation Access Assessment: Good - Pre-Operative Health Status ASA Pre-Surgery Classification: ASA2, Emergency Proposed Anesthetic Plan: General - Pulmonary Hx Smoking: Yes Hx Asthma: Yes - Hematic Hx Sickle Cell Disease: No
[2019-01-28] MEDS ORDERED: MIDAZOLAM 2 MG/2 ML INJ IV NR (15:00)
[2019-01-28] MEDS ORDERED: LIDOCAINE MPF (2%) 20 MG/1 ML VIAL 5 ML ONE (15:06)
[2019-01-28] MEDS ORDERED: MIDAZOLAM 2 MG/2 ML INJ ONE (15:06)
[2019-01-28] MEDS ORDERED: fentaNYL 100 MCG/2 ML INJ ONE (15:06)
[2019-01-28] MEDS ORDERED: PROPOFOL 200 MG/20 ML VIAL IV ONE (15:06)
[2019-01-28] MEDS ORDERED: HYDROmorphone 1 MG/1 ML INJ ONE (15:30)
--- NOTE | 2019-01-28 15:56 | Post Operative Note ---
Date of procedure: 01/28/19 Pre-op diagnosis: r distal stone Post-op diagnosis: same Findings: narrow Procedure: r distal stone Anesthesia: ROCHELLE Surgeon: ARMAAN CARDONA Estimated blood loss: none Pathology: none Condition: stable Disposition: PACU
--- NOTE | 2019-01-28 15:57 | Progress Note ---
Assessment and Plan ureter open can go home on ceftin Subjective Date of service: 01/28/19 Principal diagnosis: stone Objective - Constitutional Vitals: Vital Signs - 12hr 01/28/19 01/28/19 01/28/19 06:21 06:40 13:03 Temperature 98.4 F 98.9 F Pulse Rate 66 79 Respiratory 16 18 22 Rate Blood Pressure 101/61 127/69 Blood Pressure 90/50 [Left] O2 Sat by Pulse 98 Oximetry 01/28/19 01/28/19 13:35 15:17 Temperature 100.6 F H 100.6 F H Pulse Rate 83 83 Respiratory 22 22 Rate Blood Pressure 128/73 128/73 Blood Pressure [Left] O2 Sat by Pulse 100 100 Oximetry - Labs CBC & Chem 7: 01/27/19 05:38 01/27/19 05:38 Medications & Allergies - Medications Allergies/Adverse Reactions: Allergies shellfish derived Allergy (Unknown, Verified 01/28/19 15:12) Unknown meperidine [From Demerol] Allergy (Verified 01/26/19 14:45) Unknown Home Medications: Home Medications Medication Instructions Recorded Confirmed Last Taken Type No Known Home Medications [No 01/28/19 01/28/19 Unknown History Reported Home Medications] Active Medications: Generic Name Dose Route Start Last Admin Trade Name Freq PRN Reason Stop Dose Admin Acetaminophen 650 mg 01/26/19 18:11 01/28/19 00:48 Tylenol PO 650 mg Q4H PRN Administration Pain MILD(1-3)/Fever >100.5/LIZARRAGA Famotidine 20 mg 01/26/19 22:00 01/28/19 12:26 Pepcid PO Not Given BID [facility] Fentanyl 50 mcg 01/28/19 14:05 Sublimaze IV 01/29/19 14:04 Q5MIN PRN Pain , Severe (7-10) Guaifenesin 600 mg 01/26/19 23:45 01/28/19 12:26 Mucinex Er PO Not Given BID JAIRO Hydromorphone HCl 0.5 mg 01/26/19 18:11 01/28/19 12:57 Dilaudid IV 0.5 mg Q3H PRN Administration Pain , Severe (7-10) Sodium Chloride 1,000 mls @ 100 mls/hr 01/26/19 19:00 01/28/19 06:37 Nacl 0.9% 1000 Ml IV 100 mls/hr DIRECT JAIRO Administration Ceftriaxone Sodium 2 gm in 100 mls @ 200 mls/hr 01/26/19 19:00 01/28/19 12:58 Rocephin/Ns 2 Gm/100 Ml IV 200 mls/hr Q24HR JAIRO Administration Protocol Midazolam HCl 2 mg 01/28/19 15:00 01/28/19 14:37 Versed IV 01/28/19 23:59 2 mg PREOP NR Administration Nicotine 7 mg 01/26/19 20:00 01/28/19 12:58 Habitrol TD 7 mg QDAY JAIRO Administration Ondansetron HCl 4 mg 01/26/19 18:11 Zofran IV Q8H PRN Nausea And Vomiting Ondansetron HCl 4 mg 01/28/19 14:05 Zofran IV ONCE PRN Nausea And Vomiting Sodium Chloride 10 ml 01/26/19 22:00 01/28/19 12:58 Sodium Chloride Flush Syringe 10 Ml IV 10 ml BID JAIRO Administration Sodium Chloride 10 ml 01/26/19 18:11 01/28/19 01:56 Sodium Chloride Flush Syringe 10 Ml IV 10 ml PRN PRN Administration LINE FLUSH
[2019-01-28] MEDS ORDERED: ONDANSETRON 4 MG/2 ML INJ ONE (16:00)
[2019-01-28] MEDS ORDERED: dexAMETHasone 20 MG/5 ML VIAL ONE (16:00)
--- NOTE | 2019-01-28 16:26 | Operative Report ---
PREOPERATIVE DIAGNOSIS: Right distal ureteral stone, severe pain. POSTOPERATIVE DIAGNOSES: Some gravel distal ureter with some narrowing of the distal ureter, hydroureteronephrosis. PROCEDURE: Cystoscopy, right retrograde, right ureteral balloon dilatation, ureteroscopy, double-J stent. SURGEON: Dr. Barth. ANESTHESIA: General. FINDINGS: This is a woman with severe pain, right distal stone on CT scan, which was small. Her pain was not as severe. She now presents for treatment. She is still having significant discomfort requiring pain medication. DESCRIPTION OF PROCEDURE: The patient was brought to the operating room and placed on the operating table. Following induction of anesthesia, she was placed in lithotomy position, prepped and draped in usual sterile fashion. Cystourethroscopy showed no bladder lesions. Retrograde showed hydroureteronephrosis down to the ureterovesical junction. Balloon dilatation was carried out. Ureteroscopy showed some gravel which seemed to pass, no distinct stone. We went up without difficulty and came right back down. There were no filling defects, no irregularities. The patient tolerated the procedure well. A double J was left with a string. She was brought to recovery room in stable condition. JOB# [id number] MADDISON/LB
--- NOTE | 2019-01-28 16:44 | Fluoroscopy Report ---
11 fluoroscopic images submitted Indication: Intraoperative localization Impression: 11 images of the abdomen were submitted for documentation purposes with radiology paresh huang. A right-sided retrograde pyelogram was performed with angioplasty and stent placement. A tota l of 10 mL of Omnipaque 300 was utilized for this exam. Please refer to the operative note for comple te details. Fluoroscopic time: 1 minute and 3 seconds Signer Name: Ramsey Almendarez MD Signed: 01/28/2019 4:40 PM Workstation Name: [id number]
[2019-01-28 17:20] VITALS: BP 122/64
--- NOTE | 2019-01-28 17:30 | Discharge Summary ---
Providers - Providers Date of Admission: 01/26/19 18:00 Date of discharge: 01/28/19 Attending physician: CHAPARRO BARLOW 01/27/19 16:28 Consult to Physician [CONS] Routine Comment: Consulting Provider: SUSAN MARTIN Physician Instructions: I notified Reason For Exam: Ureteral stone with infection Primary care physician: MARKETING INTELLIGENCE ANALYST Hospitalization Condition: Stable Procedures: Cystoscopy on 01/28/[address] Barth, Urologist Hospital course: Patient is a 43 yo woman with history of uterine fibroids status post hysterectomy who presents with lower abdominal pain and bilateral back pains for last 3 days. * CT abd/pelvis wo contrast IMPRESSION: 4 mm distal right ureteral calculus with minimal proximal ureterectasis. There are additional punctate nonobstructing calculi in the collecting system of the right kidney. Biliary sludge. No evidence of acute cholecystitis by noncontrast CT. Discharge Diagnoses: Right Ureteral stones s/p Cystoscopy, Ureteral now open Sepsis secondary to acute pyelonephritis Acute pyelonephritis: IV Rocephin 2 g IV piggyback every 24hrs, Check urine cultures==>neg x 24hours Hypokalemia Supplemented, monitor BMP closely Nicotine dependence: Patient counseled, NicoDerm patch initiated DVT prophylaxis: On Lovenox and GI prophylaxis Disposition: DC-01 TO HOME OR SELFCARE Time spent for discharge: 36 minutes Core Measure Documentation - Palliative Care Palliative Care/ Comfort Measures: Not Applicable - Core Measures Any of the following diagnoses?: none - VTE Discharge Requirements Deep Vein Thrombosis/Pulmonary Embolism Present on Admission: No Has pt received <5 days of overlap therapy or INR<2.0: No Anticoagulant overlap therapy prescribed at discharge: No Contraindication No Overlap Therapy order at DC: Not Indicated Exam - Physical Exam Narrative exam: Gen: WDWN, ill appearing, diaphoretic, NAD, Awake, Alert, Orientated HEENT: NCAT, EOMI, PERRL, OP Clear Neck: supple, no adenopathy, no thyromegaly, no JVD CVS/Heart: RRR, normal S1S2, pulses present bilaterally Chest/Lungs: CTA B, Symmetrical chest expansion, good air entry bilaterally GI/Abdomen: soft, NTND, good bowel sounds, no guarding or rebound /Bladder: no suprapubic tenderness, +Right CVA tenderness no paraspinal tenderness Extermity/Skin: no c/c/e, no obvious rash MSK: FROM x 4 Neuro: CN 2-12 grossly intact, no new focal deficits Psych: calm - Constitutional Vitals: Temp Pulse Resp BP Pulse Ox 99.1 F 93 H 20 122/64 100 01/28/19 17:05 01/28/19 17:05 01/28/19 17:05 01/28/19 17:05 01/28/19 17:05 Plan Activity: other (No strenous activity) Diet: regular Additional Instructions: Call [facility] at [phone] for PCP appointment, ask for first available. They have many locations. Follow up with: SUSAN MARTIN MD [Staff Physician] - 7 Days [facility] [Provider Group] - 14 Days Prescriptions: Acetaminophen [Acetaminophen TAB] 2 tab PO Q6H PRN #12 tablet PRN Reason: Pain MILD(1-3)/Fever >100.5/LIZARRAGA cefUROXime [Ceftin] 2 tab PO BID #16 tablet Nicotine [Habitrol] 14 mg TD DAILY #7 patch Oxycodone HCl/Acetaminophen [Percocet 10/325 mg] 1 each PO Q6HR PRN #20 tablet PRN Reason: Pain , Severe (7-10) Ondansetron [Zofran Oral Liq] 4 mg PO Q4HR PRN 3 Days ml PRN Reason: Nausea
--- NOTE | 2019-01-28 19:42 | Post Anesthesia Evaluation ---
- Post Anesthesia Evaluation Patient Participated: Yes Airway Patent: Yes Stable Respiratory Function: Yes Nausea/Vomiting: No Temp > 96.8F: Yes Pain Manageable: Yes Adequeate Hydration: Yes Anesthesia Complications: No Block Receding Appropriately: Not Applicable Patient on Ventilator: No
== END 2019-01-28 20:20 | disposition home or self-care (01) | DRG 854 ==
LOC: ED 14:42 → 3A 18:00
PROVIDERS: ADMIT Internal Medicine; ATTEND Internal Medicine
PROC: 0T768DZ Dilation of Right Ureter with Intraluminal Device, Via Natural or Artificial Opening Endoscopic (ICD-10-PCS; principal; 2019-01-28)
PROC: BT1D1ZZ Fluoroscopy of Right Kidney, Ureter and Bladder using Low Osmolar Contrast (ICD-10-PCS; 2019-01-28)
DX: A41.9 Sepsis, unspecified organism (principal); N13.6 Pyonephrosis; F17.210 Nicotine dependence, cigarettes, uncomplicated; E87.6 Hypokalemia; R65.10 Systemic inflammatory response syndrome (SIRS) of non-infectious origin without acute organ dysfunction; Z90.710 Acquired absence of both cervix and uterus; Z88.8 Allergy status to other drugs, medicaments and biological substances; Z71.6 Tobacco abuse counseling; Z82.49 Family history of ischemic heart disease and other diseases of the circulatory system
CPT/HCPCS: 36415; 74176; 74420; 80053; 81001; 81025; 82140; 83036; 83690; 85025; 87040; 87086; 94760; 96365; 96375; 99406; G0378; C1726; C1758; C1769; C2617; J0696; J1100; J1170; J1650; J1885; J2250; J2270; J2405; J2704; J3010; J7030; Q9967

== ENCOUNTER 2019-02-12 17:37 | Emergency (ER) | payer SELFPAY ==
[2019-02-12 18:15] VITALS: BP 107/74
[2019-02-12 19:08] LABS: Bacteria,Urine 4+ /HPF (Negative); Bilirubin,Urine NEG (Negative); Blood,Urine LG (Negative); Color,Urine Yellow (Yellow); Mucus,Urine 2+ /HPF; Urobilinogen,Urine < 2.0 mg/dL (<2.0)
[2019-02-12 19:23] LABS: Basophils # (Auto) 0.1 K/mm3 (0.0-0.1); Basophils % (Auto) 0.9 % (0.0-1.8); Eosinophils % (Auto) 0.2 % (0.0-4.3); Hematocrit 45.2 % (30.3-42.9); Hemoglobin 15.2 gm/dl (10.1-14.3); Lymphocytes # (Auto) 1.9 K/mm3 (1.2-5.4); Lymphocytes % (Auto) 18.5 % (13.4-35.0); Mean Corpuscular HGB Conc 34 % (30-34); Mean Corpuscular Volume 89 fl (79-97); Monocytes % (Auto) 9.9 % (0.0-7.3); Platelet Count 268 K/mm3 (140-440); Red Blood Count 5.09 M/mm3 (3.65-5.03)
[2019-02-12 19:24] LABS: RBC,Urine > 182.0 /HPF (0.0-6.0); WBC,Urine > 182.0 /HPF (0.0-6.0)
[2019-02-12 19:42] LABS: Alanine Aminotransferase 17 units/L (7-56); Albumin 3.9 g/dL (3.9-5); BUN/Creatinine Ratio 18; Blood Urea Nitrogen 11 mg/dL (7-17); Calcium 9.7 mg/dL (8.4-10.2); Hemolysis Index 86
--- NOTE | 2019-02-12 19:52 | Cat Scan Report ---
CT OF THE ABDOMEN AND PELVIS WITHOUT CONTRAST INDICATION / CLINICAL INFORMATION: Abdominal pain and history of recent surgery. TECHNIQUE: All CT scans at this location are performed using CT dose reduction for ALARA by means of automated e xposure control. COMPARISON: 01/26/2019. FINDINGS: ABDOMEN: There is a new double-J right ureteral stent in good position. I do not identify a calculus in the right ureter. There is no evidence of hydronephrosis. There are a couple of tiny nonobstructiv e right renal calculi. There are bilateral simple cyst-appearing renal lesions. The liver, spleen, gallbladder, bile ducts, pancreas, adrenal glands and bowel demonstrate no signifi cant abnormality. The lung bases are clear. PELVIS: The double-J right ureteral stent is well situated within the urinary bladder. The distal lef t ureter and urinary bladder are normal. The uterus and ovaries are not identified. A normal appendix is present and there is no evidence of diverticulitis. No abnormal mass or fluid collection is seen. IMPRESSION: No acute abnormality is identified. Signer Name: Eliot Dorado MD Signed: 02/12/2019 7:48 PM Workstation Name: [id number]
[2019-02-12] MEDS ORDERED: ULTRAM PO ONE (20:07)
--- NOTE | 2019-02-12 20:07 | Emergency Department Report ---
ED Abdominal Pain HPI - General Chief Complaint: Abdominal Pain Stated Complaint: KIDNEY STONES/PAIN Time Seen by Provider: 02/12/19 19:10 Source: patient Mode of arrival: Ambulatory Limitations: No Limitations - History of Present Illness Initial Comments: This is a 44-year-old -[place] female who presents to the emergency room with right flank pain for 2 days. Past medical history of asthma and nephrolithiasis. She reports nausea, urinary frequency, chills, and dysuria. Patient states she had stents placed [address] Engel and have a follow-up appointment on February. Reports pain as sharp radiating pain from right lower quadrant to right flank and intermittent. MD Complaint: abdominal pain Onset/Timin -: days(s) Location: suprapubic Radiation: R flank Migration to: no migration Severity: severe Severity scale (0 -10): 10 Quality: stabbing, sharp Consistency: intermittent Improves With: nothing Worsens With: other (urination) Associated Symptoms: nausea, chills, dysuria. denies: vomiting, diarrhea, fever, hematuria Treatments Prior to Arrival: NSAIDs - Related Data Previous Rx's Medication Instructions Recorded Last Taken Type Acetaminophen [Acetaminophen TAB] 2 tab PO Q6H PRN #12 tablet 01/28/19 Unknown Rx Nicotine [Habitrol] 14 mg TD DAILY #7 patch 01/28/19 Unknown Rx Ondansetron [Zofran Oral Liq] 4 mg PO Q4HR PRN 3 Days ml 01/28/19 Unknown Rx Oxycodone HCl/Acetaminophen 1 each PO Q6HR PRN #20 tablet 01/28/19 Unknown Rx [Percocet 10/325 mg] cefUROXime [Ceftin] 2 tab PO BID #16 tablet 01/28/19 Unknown Rx Phenazopyridine [Pyridium] 200 mg PO TID #6 tab 02/12/19 Unknown Rx Sulfamethoxazole/Trimethoprim 1 each PO BID #6 tablet 02/12/19 Unknown Rx [Bactrim DS TAB] Allergies Allergy/AdvReac Type Severity Reaction Status Date / Time shellfish derived Allergy Unknown Unknown Verified 01/28/19 15:12 meperidine [From Demerol] Allergy Unknown Verified 01/26/19 14:45 ED Review of Systems ROS: Stated complaint: KIDNEY STONES/PAIN Other details as noted in HPI Constitutional: denies: chills, fever Respiratory: denies: cough, shortness of breath, wheezing Cardiovascular: denies: chest pain, palpitations Gastrointestinal: abdominal pain. denies: nausea, diarrhea Genitourinary: dysuria, frequency. denies: urgency, hematuria, discharge, abnormal menses Musculoskeletal: back pain (right flank). denies: joint swelling, arthralgia Skin: denies: rash, lesions Neurological: denies: headache, weakness, paresthesias Psychiatric: denies: anxiety, depression ED Past Medical Hx - Past Medical History Previous Medical History?: Yes Hx Sickle Cell Disease: No Hx Kidney Stones: Yes Hx Asthma: Yes - Surgical History Past Surgical History?: Yes Additional Surgical History: hysterectomy - Social History Smoking Status: Current Some Day Smoker - Medications Home Medications: Home Medications Medication Instructions Recorded Confirmed Last Taken Type Acetaminophen [Acetaminophen TAB] 2 tab PO Q6H PRN #12 tablet 01/28/19 Unknown Rx Nicotine [Habitrol] 14 mg TD DAILY #7 patch 01/28/19 Unknown Rx Ondansetron [Zofran Oral Liq] 4 mg PO Q4HR PRN 3 Days ml 01/28/19 Unknown Rx Oxycodone HCl/Acetaminophen 1 each PO Q6HR PRN #20 tablet 01/28/19 Unknown Rx [Percocet 10/325 mg] cefUROXime [Ceftin] 2 tab PO BID #16 tablet 01/28/19 Unknown Rx Phenazopyridine [Pyridium] 200 mg PO TID #6 tab 02/12/19 Unknown Rx Sulfamethoxazole/Trimethoprim 1 each PO BID #6 tablet 02/12/19 Unknown Rx [Bactrim DS TAB] ED Physical Exam - General Limitations: No Limitations General appearance: alert, in no apparent distress - Respiratory Respiratory exam: Present: normal lung sounds bilaterally. Absent: respiratory distress - Cardiovascular Cardiovascular Exam: Present: regular rate, normal rhythm. Absent: systolic murmur, diastolic murmur, rubs, gallop - GI/Abdominal GI/Abdominal exam: Present: soft, tenderness (suprapubic), normal bowel sounds. Absent: distended, guarding, rebound, rigid, organomegaly - Back Exam Back exam: Present: CVA tenderness (R), CVA tenderness (L). Absent: rash noted - Neurological Exam Neurological exam: Present: alert, oriented X3, normal gait - Psychiatric Psychiatric exam: Present: normal affect, normal mood - Skin Skin exam: Present: warm, dry, intact, normal color. Absent: rash ED Course Vital Signs 02/12/19 18:07 Temperature 98.5 F Pulse Rate 119 H Respiratory 18 Rate Blood Pressure 107/74 O2 Sat by Pulse 97 Oximetry ED Medical Decision Making - Lab Data Result diagrams: 02/12/19 18:42 02/12/19 18:42 Lab Results 02/12/19 02/12/19 02/12/19 Range/Units 18:28 18:42 18:42 WBC 10.1 (4.5-11.0) K/mm3 RBC 5.09 H (3.65-5.03) M/mm3 Hgb 15.2 H (10.1-14.3) gm/dl Hct 45.2 H (30.3-42.9) % MCV 89 (79-97) fl MCH 30 (28-32) pg MCHC 34 (30-34) % RDW 15.0 (13.2-15.2) % Plt Count 268 (140-440) K/mm3 Lymph % (Auto) 18.5 (13.4-35.0) % [place] % (Auto) 9.9 H (0.0-7.3) % Eos % (Auto) 0.2 (0.0-4.3) % Baso % (Auto) 0.9 (0.0-1.8) % Lymph # 1.9 (1.2-5.4) K/mm3 [place] # 1.0 H (0.0-0.8) K/mm3 Eos # 0.0 (0.0-0.4) K/mm3 Baso # 0.1 (0.0-0.1) K/mm3 Seg Neutrophils % 70.5 H (40.0-70.0) % Seg Neutrophils # 7.1 (1.8-7.7) K/mm3 Sodium 132 L (137-145) mmol/L Potassium 4.0 (3.6-5.0) mmol/L Chloride 97.9 L (98-107) mmol/L Carbon Dioxide 18 L (22-30) mmol/L Anion Gap 20 mmol/L BUN 11 (7-17) mg/dL Creatinine 0.6 L (0.7-1.2) mg/dL Estimated GFR > 60 ml/min BUN/Creatinine Ratio 18 % Glucose 113 H (65-100) mg/dL Calcium 9.7 (8.4-10.2) mg/dL Total Bilirubin 0.50 (0.1-1.2) mg/dL AST 20 (5-40) units/L ALT 17 (7-56) units/L Alkaline Phosphatase 113 (35-129) units/L Total Protein 8.8 H (6.3-8.2) g/dL Albumin 3.9 (3.9-5) g/dL Albumin/Globulin Ratio 0.8 % Urine Color Yellow (Yellow) Urine Turbidity Cloudy (Clear) Urine pH 6.0 (5.0-7.0) Ur Specific Centre 1.012 (1.003-1.030) Urine Protein 100 mg/dl (Negative) mg/dL Urine Glucose (UA) Neg (Negative) mg/dL Urine Ketones 20 (Negative) mg/dL Urine Blood Lg (Negative) Urine Nitrite Pos (Negative) Urine Bilirubin Neg (Negative) Urine Urobilinogen < 2.0 (<2.0) mg/dL Ur Leukocyte Esterase Lg (Negative) Urine WBC (Auto) > 182.0 H (0.0-6.0) /HPF Urine RBC (Auto) > 182.0 (0.0-6.0) /HPF U Epithel Cells (Auto) 2.0 (0-13.0) /HPF Urine Bacteria (Auto) 4+ (Negative) /HPF Urine Mucus 2+ /HPF - Radiology Data Radiology results: report reviewed CT OF THE ABDOMEN AND PELVIS WITHOUT CONTRAST INDICATION / CLINICAL INFORMATION: Abdominal pain and history of recent surgery. TECHNIQUE: All CT scans at this location are performed using CT dose reduction for ALARA by means of automated exposure control. COMPARISON: 01/26/2019. FINDINGS: ABDOMEN: There is a new double-J right ureteral stent in good position. I do not identify a calculus in the right ureter. There is no evidence of hydronephrosis. There are a couple of tiny nonobstructive right renal calculi. There are bilateral simple cyst-appearing renal lesions. The liver, spleen, gallbladder, bile ducts, pancreas, adrenal glands and bowel demonstrate no significant abnormality. The lung bases are clear. PELVIS: The double-J right ureteral stent is well situated within the urinary bladder. The distal left ureter and urinary bladder are normal. The uterus and ovaries are not identified. A normal appendix is present and there is no evidence of diverticulitis. No abnormal mass or fluid collection is seen. IMPRESSION: No acute abnormality is identified. - Medical Decision Making The patient was seen by this provider. Slightly tachycardia. Past medical history of nephrolithiasis and asthma. Labs and CT of abdomen and pelvis obt ained. Urinalysis positive for acute cystitis. CT of abdomen and pelvis findings of no acute abnormality is identified. Given analgesics while in the ER. Start Bactrim and Pyridium. Instructed to take ibuprofen for pain. Patient discharged home stable. Critical care attestation.: If time is entered above; I have spent that time in minutes in the direct care of this critically ill patient, excluding procedure time. ED Disposition Clinical Impression: Dysuria, Right flank pain Acute cystitis Qualifiers: Hematuria presence: with hematuria Qualified Code(s): N30.01 - Acute cystitis with hematuria Disposition: TO HOME OR SELFCARE Is pt being admited?: No Condition: Stable Instructions: Abdominal Pain (ED), Urinary Tract Infection in Women (ED) Additional Instructions: Increase fluid intake to 1L-2L daily. Prescriptions: Sulfamethoxazole/Trimethoprim [Bactrim DS TAB] 1 each PO BID #6 tablet Phenazopyridine [Pyridium] 200 mg PO TID #6 tab Referrals: [facility] [Outside] - 3-5 Days [facility] [Outside] - 3-5 Days [facility] [Outside] - 3-5 Days Forms: Work/School Release Form(ED) Time of Disposition: 20:11
== END 2019-02-12 20:28 | disposition home or self-care (01) ==
LOC: ED 17:37
DX: N30.01 Acute cystitis with hematuria (principal); J45.909 Unspecified asthma, uncomplicated; F17.200 Nicotine dependence, unspecified, uncomplicated; Z91.013 Allergy to seafood; Z88.8 Allergy status to other drugs, medicaments and biological substances; Z79.899 Other long term (current) drug therapy; Z87.442 Personal history of urinary calculi; Z90.710 Acquired absence of both cervix and uterus
CPT/HCPCS: 36415; 74176; 80053; 81001; 85025; 99284